=== PATIENT | male | born 1995 | race Caucasian/White ===

== ENCOUNTER 2017-08-26 05:44 | Emergency (ER) | payer OTHER ==
[~2017-08-26] VITALS: Ht 157.5 cm; Wt 68.0 kg
[~2017-08-26 05:44] MED LIST: ADVIL200 M1 PO; NON; TYLENOL32 MG/ML
== END 2017-08-26 10:41 | disposition home or self-care (01) ==
LOC: ER 05:44
DX: K80.20 Calculus of gallbladder without cholecystitis without obstruction (principal)

== ENCOUNTER 2017-09-05 12:02 | Outpatient (CLI) | payer OTHER | END 2017-09-05 12:04 | disposition home or self-care (01) | LOC: RAD 12:02 | DX: K38.2 Diverticulum of appendix (principal); Z01.818 Encounter for other preprocedural examination ==

== ENCOUNTER 2017-09-12 05:00 | Day surgery (SDC) | payer OTHER ==
[2017-09-12] MEDS ORDERED: ULTRACET PO (10:18)
== END 2017-09-12 12:05 | disposition home or self-care (01) ==
LOC: CIR.AMB 05:00
DX: K80.10 Calculus of gallbladder with chronic cholecystitis without obstruction (principal)

== ENCOUNTER 2018-11-29 16:01 | Emergency (ER) | payer OTHER ==
[~2018-11-29] VITALS: Ht 157.5 cm; Wt 72.1 kg
[~2018-11-29 16:01] MED LIST changes: +ULTRACET PO
== END 2018-11-29 21:41 | disposition home or self-care (01) ==
LOC: ER 16:01
DX: K29.60 Other gastritis without bleeding (principal); R10.84 Generalized abdominal pain

== ENCOUNTER 2019-01-08 08:00 | Emergency (ER) | payer OTHER ==
[~2019-01-08] VITALS: Ht 157.5 cm; Wt 72.6 kg
[2019-01-08] MEDS ORDERED: BENADRYL25 MG PO (08:30)
[2019-01-08] MEDS ORDERED: NIZORAL SHAMPO120 ML TOP (10:04)
[2019-01-08] MEDS ORDERED: DERMACINRX THE135 GM TOP (10:04)
== END 2019-01-08 10:08 | disposition home or self-care (01) ==
LOC: ER 08:00
DX: B35.4 Tinea corporis (principal)

== ENCOUNTER 2019-01-28 18:17 | Emergency (ER) | payer OTHER ==
[~2019-01-28] VITALS: Ht 157.5 cm; Wt 72.6 kg
[~2019-01-28 18:17] MED LIST changes: +BENADRYL25 MG PO; +DERMACINRX THE135 GM TOP; +NIZORAL SHAMPO120 ML TOP
== END 2019-01-29 00:04 | disposition home or self-care (01) ==
LOC: ER 18:17
DX: K52.9 Noninfective gastroenteritis and colitis, unspecified (principal)

== ENCOUNTER 2020-12-06 08:18 | Emergency (ER) | payer OTHER ==
[~2020-12-06] VITALS: Ht 157.5 cm; Wt 76.2 kg
[2020-12-06] MEDS ORDERED: BACTRIM 400-801 EACH PO (15:13)
== END 2020-12-06 15:25 | disposition home or self-care (01) ==
LOC: ER 08:18
DX: R30.0 Dysuria (principal)

== ENCOUNTER 2020-12-11 10:13 | Emergency (ER) | payer OTHER ==
[~2020-12-11] VITALS: Ht 157.5 cm; Wt 78.0 kg
[~2020-12-11 10:13] MED LIST changes: +BACTRIM 400-801 EACH PO
[2020-12-11] MEDS ORDERED: KETO10TA2 PO (17:10)
== END 2020-12-11 17:19 | disposition home or self-care (01) ==
LOC: ER 10:13
DX: R30.0 Dysuria (principal); R11.10 Vomiting, unspecified

== ENCOUNTER 2020-12-21 08:11 | Emergency (ER) | payer OTHER ==
[~2020-12-21] VITALS: Ht 157.5 cm; Wt 77.1 kg
[~2020-12-21 08:11] MED LIST changes: +KETO10TA2 PO
== END 2020-12-21 12:23 | disposition home or self-care (01) ==
LOC: ER 08:11
DX: N23 Unspecified renal colic (principal)

== ENCOUNTER 2021-01-02 20:35 | Emergency (ER) | payer OTHER ==
[~2021-01-02] VITALS: Ht 157.5 cm; Wt 75.3 kg
[2021-01-03] MEDS ORDERED: KETO10TA2 PO (04:19)
[2021-01-03] MEDS ORDERED: CEPHALEXIN500 MG PO (04:19)
[2021-01-03] MEDS ORDERED: TAMS0.4C PO (04:19)
== END 2021-01-03 04:22 ==
LOC: ER 20:35
DX: N23 Unspecified renal colic (principal); Z03.818 Encounter for observation for suspected exposure to other biological agents ruled out; N20.0 Calculus of kidney

== ENCOUNTER 2021-01-18 12:00 | Emergency (ER) | payer OTHER ==
[~2021-01-18] VITALS: Ht 157.5 cm; Wt 73.5 kg
[~2021-01-18 12:00] MED LIST changes: +CEPHALEXIN500 MG PO; +TAMS0.4C PO
== END 2021-01-18 17:05 | disposition home or self-care (01) ==
LOC: ER 12:00
DX: N20.1 Calculus of ureter (principal)

== ENCOUNTER 2021-03-31 08:00 | Outpatient (CLI) | payer OTHER | END 2021-03-31 08:15 | disposition home or self-care (01) | LOC: PPH VACUNA 08:00 | PROVIDERS: ATTEND Emergency Medicine Pediatric Emergency Medicine | DX: Z23 Encounter for immunization (principal) ==

== ENCOUNTER 2021-10-10 11:26 | Emergency (ER) | payer OTHER ==
[~2021-10-10] VITALS: Ht 157.5 cm; Wt 71.2 kg
== END 2021-10-10 14:52 | disposition home or self-care (01) ==
LOC: ER 11:26
DX: U07.1 COVID-19 (principal); Z88.8 Allergy status to other drugs, medicaments and biological substances

== ENCOUNTER 2022-03-05 10:26 | Emergency (ER) | payer OTHER ==
[~2022-03-05] VITALS: Ht 157.5 cm; Wt 83.9 kg
== END 2022-03-05 15:45 | disposition home or self-care (01) ==
LOC: ER 10:26
DX: S80.12XA Contusion of left lower leg, initial encounter (principal); S60.052A Contusion of left little finger without damage to nail, initial encounter; V29.99XA Rider (driver) (passenger) of other motorcycle injured in unspecified traffic accident, initial encounter; Y93.89 Activity, other specified; Y92.413 State road as the place of occurrence of the external cause; Y99.9 Unspecified external cause status; Z88.8 Allergy status to other drugs, medicaments and biological substances

== ENCOUNTER 2022-04-10 09:11 | Outpatient (CLI) | payer OTHER ==
[2022-04-10] MEDS ORDERED: AMOX1TAB5 PO (12:29)
[2022-04-10] MEDS ORDERED: TUSSIN DM SYRU118 ML PO (12:30)
== END 2022-04-10 09:13 | disposition home or self-care (01) ==
LOC: LAB 09:11
PROVIDERS: ATTEND Preventive Medicine Occupational Medicine
DX: U07.1 COVID-19 (principal)

== ENCOUNTER 2022-04-10 10:09 | Emergency (ER) | payer OTHER ==
[~2022-04-10] VITALS: Ht 157.5 cm; Wt 71.7 kg
[2022-04-10] MEDS ORDERED: AMOX1TAB5 PO (12:29)
[2022-04-10] MEDS ORDERED: TUSSIN DM SYRU118 ML PO (12:30)
== END 2022-04-10 12:41 | disposition home or self-care (01) ==
LOC: ER 10:09
DX: J06.9 Acute upper respiratory infection, unspecified (principal); Z88.8 Allergy status to other drugs, medicaments and biological substances

== ENCOUNTER 2022-07-28 11:30 | Emergency (ER) | payer OTHER ==
[~2022-07-28] VITALS: Ht 157.5 cm; Wt 70.3 kg
[~2022-07-28 11:30] MED LIST changes: +AMOX1TAB5 PO; +TUSSIN DM SYRU118 ML PO
== END 2022-07-28 14:54 | disposition home or self-care (01) ==
LOC: ER 11:30
DX: B34.9 Viral infection, unspecified (principal); Z88.8 Allergy status to other drugs, medicaments and biological substances

== ENCOUNTER 2023-05-23 20:32 | Emergency (ER) | payer OTHER ==
[~2023-05-23] VITALS: Ht 157.5 cm; Wt 70.8 kg
[2023-05-23] MEDS ORDERED: KETOROLAC TROMETHAMINE 60 MG VIAL IM STA (22:36)
[2023-05-23] MEDS ORDERED: ORPHENADRINE CITRATE 30 MG/ML AMPUL IM STA (22:36)
[2023-05-23] MEDS ORDERED: TETANUS & DIPHTHERIA TOX,ADULT 0.5 ML VIAL IM STA (22:37)
== END 2023-05-23 23:03 | disposition home or self-care (01) ==
LOC: ER 20:32
DX: S50.811A Abrasion of right forearm, initial encounter (principal); S80.812A Abrasion, left lower leg, initial encounter; S80.811A Abrasion, right lower leg, initial encounter; V29.99XA Rider (driver) (passenger) of other motorcycle injured in unspecified traffic accident, initial encounter; Y93.89 Activity, other specified; Y92.413 State road as the place of occurrence of the external cause; Y99.9 Unspecified external cause status; Z88.8 Allergy status to other drugs, medicaments and biological substances